=== PATIENT | female | born 1955 | race African-American/Black ===

== ENCOUNTER 2019-03-30 23:55 | Emergency (ER) | payer OTHER ==
[~2019-03-30] VITALS: Ht 162.6 cm; Wt 65.9 kg
[~2019-03-30 23:55] MED LIST: ALBU8HFA IH; COMBISP IH; DSS100 PO; LITH300C3 PO; METH10 PO; OMEP20 PO; PRED-284 PO; QUET100T PO
[2019-03-31 00:50] VITALS: BP 170/75
== END 2019-03-31 01:50 | disposition left against medical advice (07) ==
LOC: EMS 23:55
DX: F22 Delusional disorders (principal); F15.10 Other stimulant abuse, uncomplicated; F20.9 Schizophrenia, unspecified; I10 Essential (primary) hypertension; F41.9 Anxiety disorder, unspecified; F31.9 Bipolar disorder, unspecified; F17.210 Nicotine dependence, cigarettes, uncomplicated; F11.90 Opioid use, unspecified, uncomplicated; Z79.899 Other long term (current) drug therapy; Z88.2 Allergy status to sulfonamides